=== PATIENT | female | born 1955 | race Caucasian/White ===

== ENCOUNTER → 2018-04-15 | Outpatient (CLI) | payer OTHER, MEDICAID | DX: R06.02 Shortness of breath (principal); Q21.1 Atrial septal defect; I50.9 Heart failure, unspecified ==

== ENCOUNTER → 2019-02-24 | Outpatient (CLI) | payer OTHER, MEDICAID | LOC: BHFA 11:00 | PROVIDERS: ATTEND Internal Medicine Cardiovascular Disease | DX: I50.9 Heart failure, unspecified (principal); I34.0 Nonrheumatic mitral (valve) insufficiency; R06.02 Shortness of breath; Q21.1 Atrial septal defect; Z91.89 Other specified personal risk factors, not elsewhere classified ==